=== PATIENT | female | born 1980 | race Caucasian/White ===

== ENCOUNTER 2019-10-30 19:31 | Emergency (ER) | payer BC, MEDICAID ==
[~2019-10-30] VITALS: Ht 162.6 cm; Wt 68.0 kg
--- NOTE | 2019-10-30 20:08 | NUR ---
BIBS FOR C/O LOWER ABD PAIN RADITING TO THE BACK X 1 WK. + URINARY FREQUENCY. PLACED IN BED 1 ON MONITOR AND PULSE OX. NO ACUTE DISTRESS NOTED. VSS.
--- NOTE | 2019-10-30 20:09 | NUR ---
URINE COLLECTED AND SENT TO LAB
[2019-10-30 20:24] LABS: APPEARANCE,URINE Clear (CLEAR); BILIRUBIN,URINE Negative (NEGATIVE); BLOOD, URINE Small Ery/uL (NEGATIVE); COLOR,URINE Yellow (YELLOW); KETONES,URINE Negative (NEGATIVE); LEUKOCYTE ESTERASE ,URINE Moderate (NEGATIVE); NITRITE, URINE Negative (NEGATIVE); PROTEIN,URINE 30 mg/dl (NEGATIVE); UGLUCOSE Negative (NEGATIVE); UROBILINOGEN,URINE 0.2 EU/dL (0.2)
[2019-10-30 20:33] LABS: BACTERIA,URINE 1+ /HPF (None Seen); SQUAMOUS EPITHELIAL CELL,UR Few /HPF (None Seen)
[2019-10-30] MEDS ORDERED: LEVOFLOXACIN (500MG) 500 MG TABLET PO ONE (21:00)
[2019-10-30] MEDS ORDERED: HYDROCODONE/APAP 5/325MG 1 EACH TABLET PO ONE (21:00)
[2019-10-30] MEDS ORDERED: IBUPROFEN 600 MG TABLET PO ONE ×2 (21:00→21:04)
--- NOTE | 2019-10-30 21:00 | NUR ---
ADDENDUM: NORCO-5, MOTRIN 600, AND LEVAQUIN 500MG GIVEN TO PT. DID NOT DOCUMENT IT IN eMAR.
[2019-10-30] MEDS ORDERED: LEVOFLOXACIN (500MG) 500 MG TABLET ONE (21:04)
[2019-10-30] MEDS ORDERED: HYDROCODONE/APAP 5/325MG 1 EACH TABLET ONE (21:04)
--- NOTE | 2019-10-30 21:16 | NUR ---
Patient discharged to home in stable condition. Written and verbal after care instructions given. Patient verbalizes understanding of instruction and RX. Pt ambualted with steady gait, vss.
[2019-10-30 21:17] VITALS: BP 121/71
== END 2019-10-30 21:17 | disposition home or self-care (01) ==
LOC: ER 19:31
DX: N39.0 Urinary tract infection, site not specified (principal); Z90.49 Acquired absence of other specified parts of digestive tract; Z88.0 Allergy status to penicillin; Z91.040 Latex allergy status; Z91.048 Other nonmedicinal substance allergy status
CPT/HCPCS: 81000-TC; 84703-TC; 87086-TC; 87186-TC